=== PATIENT | female | born 1940 | race Caucasian/White ===

== ENCOUNTER 2018-05-06 21:50 | Inpatient (IN) ==
[2018-05-06] MEDS ORDERED: Acetaminophen 325 MG Tablet PO PRN (23:54)
[2018-05-06] MEDS ORDERED: Aluminum/Magnesium/Simethacone Susp 30 ML UDC PO PRN (23:54)
[2018-05-07 06:53] LABS: Anion Gap 10 meq/L (5-15); Blood Urea Nitrogen 12 mg/dL (7-18); Calcium 8.2 mg/dL (8.5-10.1); Carbon Dioxide 26.2 meq/L (21.0-32.0); Chloride 108 meq/L (98-107); Cholesterol 163 mg/dL (120-200); Glomerular Filtration Rate Greater Than 89 mL/min (>89); Glucose,Random 95 mg/dL (74-106); Potassium 3.5 meq/L (3.5-5.1); Sodium 144 meq/L (136-145)
[2018-05-07 06:57] LABS: Chol/HDL Ratio 2.41 Ratio; HDL Cholesterol 67.5 mg/dL (40.0-60.0); LDL Cholesterol,Calculated 76 mg/dL (0-99); Triglycerides 100 mg/dL (42-150)
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
[2018-05-07 12:02] LABS: Hemoglobin A1c 5.5 % (4.3-6.0)
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
[2018-05-08] MEDS: QUEtiapine 100 MG Tablet PO SCH ×2 (15:53→20:56)
[2018-05-09] MEDS ORDERED: Haloperidol Inj 5 MG/ML Ampul ONE (08:02)
[2018-05-09] MEDS: QUEtiapine 100 MG Tablet PO SCH ×2 (08:29→21:38)
[2018-05-09] MEDS ORDERED: Haloperidol Inj 5 MG/ML Ampul IM SCH (08:30)
--- NOTE | 2018-05-09 09:53 | P.CONPSY ---
Provisional Diagnosis Admission Date: May 06, 2018 22:50 [place] I.: Delusional disorder paranoid type History of Present Illness Service: Psychiatry Consult date: 05/09/18 Requesting Physician: Marlo Simpson Reason for Consult: Second opinion petition supporting [email or web address] Primary Care Provider: Jhonatan Amin History of Present Illness: Patient is 77-year-old white female admitted to Dr. Garcia service under the [employer] act his H&P reviewed and agreed with. Dr. Simpson is signed first opinion petition supporting [email or web address]. I agree. Patient meets criteria for involuntary psychiatric hospitalization under the [employer] act thus I will cosign second opinion petition supporting [email or web address]. Patient seen by me in the day room with nurse Chandni patient is alert delusional quite psychotic feeling that she is under federal investigation and the people are out to kill her Review of Systems All other systems reviewed negative except as stated in HPI PMFSH - History History Provided By: Patient - Medical / Surgical Hx Neg / Unobtainable Medical Problems Denied: Unable to Obtain - Tobacco History Second Hand Smoke Exposure: No Smoking Status: Never smoker - Alcohol History How Often Do You Have a Drink Containing Alcohol: Never - Substance Use History Substance History: No History of Abuse - Immunization History Tetanus Immunization: Unsure Hx Influenza Vaccine This Season: No Medications and Allergies Active Medications: Active Medications Acetaminophen (Tylenol) 650 mg PO Q4H PRN PRN Reason: Pain 1-5 or Temp >101F Al Hydrox/Mg Hydrox/Simethicone (Mag-Al Plus Susp Liq) 30 ml PO Q6H PRN PRN Reason: DYSPEPSIA Al Hydroxide/Mg Hydroxide (Milk Of Magnesia Liq) 30 ml PO DAILY PRN PRN Reason: Constipation Haloperidol Lactate (Haldol Inj) 2 mg IM STAT [facility] Last Admin: 05/09/18 08:28 Dose: 2 mg Nicotine (Habitrol 21 Mg Patch.24 Hr) 1 patch T-DERMAL DAILY [facility] Last Admin: 05/09/18 08:29 Dose: Not Given Patch Removal (Remove Old Patch) 1 each T-DERMAL HS [facility] Last Admin: 05/08/18 20:52 Dose: Not Given Quetiapine Fumarate (Seroquel) 100 mg PO BID [facility] Last Admin: 05/09/18 08:29 Dose: Not Given Allergies Allergy/AdvReac Type Severity Reaction Status Date / Time No Known Allergies Allergy Verified 05/06/18 23:49 Home Medications Medication Instructions Recorded Confirmed Type amlodipine [Norvasc] 5 mg PO DAILY 05/07/18 05/07/18 History atorvastatin 10 mg PO DAILY 05/07/18 05/07/18 History bisacodyl 5 mg PO DAILY 05/07/18 05/07/18 History lorazepam 1 mg PO QID PRN 05/07/18 05/07/18 History meloxicam 7.5 mg PO DAILY 05/07/18 05/07/18 History metoprolol tartrate 25 mg PO BID 05/07/18 05/07/18 History quetiapine 12.5 mg PO HS 05/07/18 05/07/18 History Exam Vital signs: Vital Signs 05/08/18 17:49 05/09/18 05:32 Temperature 99 F 98.2 F Pulse Rate 95 H 71 Respiratory Rate 18 18 Blood Pressure 177/81 H 143/65 H Pulse Oximetry 95 96 Intake & Output 05/08/18 05/09/18 05/09/18 18:59 06:59 18:59 Intake Total 960 / 960 0 / 0 Balance 960 / 960 0 / 0 Intake: Oral 960 / 960 0 / 0 Oral Supplement 0 / 0 Other: # Voids 1 1 # Bowel Movements 0 Narrative: Patient sitting quietly in the day room is in no acute distress, she is in no respiratory distress, no complaints of chest pain or abdominal pain. Patient moving all 4 extremities without difficulty Mental Status Examination Appearance: Appropriate Consciousness: Alert, Vigilant Orientation: Person, Place, Date/Time Motor Activity: Normal gait Speech: Unremarkable Language: Adequate Fund of Knowledge: Adequate Attention and Concentration: Adequate Memory: Impaired (Too paranoid and defensive to test patient's assessment of what is going on around her influence by her paranoia) Mood: Other (Euthymic to mildly irritable) Affect: Irritable, Labile, Anxious Thought Process & Associations: Disorganized Thought Content: Delusional Hallucination Type: None Delusion Type: Paranoid Suicidal Ideation: No Suicidal Plan: No Suicidal Intention: No Homicidal Ideation: Yes Homicidal Plan: No Homicidal Intention: No Insight: Poor Judgment: Poor Assessment and Plan - Assessment (1) Paranoid type delusional disorder Code(s): F22 - Delusional disorders Status: Acute - Plan Plan: At this time patient meets criteria for involuntary psychiatric hospitalization of the Fisher act. I agree with Dr. Simpson. Thus I will cosign second opinion petition supporting Fisher act Justification for Continued Inpatient Stay: At this time patient with decompensated placed in a lower level of care Discharge Planning: To be determined
--- NOTE | 2018-05-09 10:30 | P.PNPSY ---
Subjective Chief Complaint: Paranoid delusions of persecution. Aggressive behavior towards others destructive of property. Remarks: 05/09/2018 Subjective: Patient remains quite hostile. She is told nursing staff she and her do not get along and she refused to allow him to make any decisions for her. This appears to be an attempt on the patient's part to avoid taking any medication. She barricaded her self in the room today and required emergency treatment order Haldol 2 mg Ativan 1 mg. The patient was started just yesterday on 100 mg of Seroquel twice daily and this probably should be increased over the weekend. Except for her delusions the patient shows no cognitive impairment. She is incompetent at this point to make reality based decisions for herself. Mental Status Examination Appearance: Appropriate Consciousness: Alert, Vigilant Orientation: Person, Place, Date/Time Motor Activity: Normal gait Speech: Unremarkable Language: Adequate Fund of Knowledge: Adequate Attention and Concentration: Adequate Memory: Unremarkable Mood: Angry, Oppositional, Irritable Affect: Irritable, Labile, Anxious Thought Process & Associations: Other (Delusional, but organized and consistent with her paranoid ideation) Thought Content: Delusional Hallucination Type: None Delusion Type: Paranoid Suicidal Ideation: No Suicidal Plan: No Suicidal Intention: No Homicidal Ideation: Yes Homicidal Plan: No Homicidal Intention: No Insight: Poor Judgment: Poor Assessment and Plan - Assessment (1) Paranoid type delusional disorder Code(s): F22 - Delusional disorders Status: Acute - Plan Plan: At this time patient meets criteria for involuntary psychiatric hospitalization of the Fisher act. I agree with Dr. Simpson. Thus I will cosign second opinion petition supporting Fisher act. 05/09/2018 patient is currently on Seroquel 100 mg twice daily after finally call from her who tells me he is himself disabled and in the hospital following hip surgery. See the patient or participate in any family group planning until he is himself more stable. He plans to communicate with me regarding treatment by phone. Plan would be to gradually titrate patient's Seroquel to a point where she is at least manageable and cooperative. It may be necessary to change the patient' s neuroleptic to Zyprexa since the patient is likely to refuse oral medications. If the patient shows no improvement with Seroquel Zyprexa will be added and titrated to between 10 and 20 mg daily. This will require additional consents from the patient's . Justification for Continued Inpatient Stay: May 09, 2018 Patient is requiring EtOH and barricading herself in her room. She is at to greater risk for treatment at a lower level of care.
[2018-05-10] MEDS: QUEtiapine 100 MG Tablet PO SCH ×2 (08:05→20:41)
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
[2018-05-10] MEDS ORDERED: Lisinopril 20 MG Tablet PO ONE (16:45)
[2018-05-10 18:04] LABS: Baso # (Auto) 0.1 th/mm3 (0.0-0.2); Eos # (Auto) 0.2 th/mm3 (0.0-0.4); Eos % (Auto) 1.7 % (0.0-4.0); Hematocrit 36.2 % (35.0-46.0); Hemoglobin 12.9 gm/dL (11.6-15.3); Lymph # (Auto) 2.3 th/mm3 (1.0-4.8); Lymph % (Auto) 19.9 % (9.0-44.0); Mean Corpuscular HGB Conc 35.7 % (32.0-36.0); Mean Corpuscular Volume 86.7 fL (80.0-100.0); Mean Platelet Volume 6.5 fL (7.0-11.0); Mono # (Auto) 0.9 th/mm3 (0.0-0.9); Mono % (Auto) 7.7 % (0.0-8.0); Neut % (Auto) 69.7 % (16.0-70.0); Platelet Count 446 th/mm3 (150-450); Red Blood Count 4.17 mil/mm3 (4.00-5.30); Red Cell Distribution Width 14.2 % (11.6-17.2); White Blood Count 11.5 th/mm3 (4.0-11.0)
[2018-05-10 18:29] LABS: Alanine Aminotransferase 38 U/L (10-53); Albumin 3.8 g/dL (3.4-5.0); Anion Gap 6 meq/L (5-15); Aspartate Aminotransferase 31 U/L (15-37); Blood Urea Nitrogen 13 mg/dL (7-18); Calcium 8.9 mg/dL (8.5-10.1); Carbon Dioxide 31.3 meq/L (21.0-32.0); Chloride 104 meq/L (98-107); Glomerular Filtration Rate 53 mL/min (>89); Glucose,Random 107 mg/dL (74-106); Potassium 3.3 meq/L (3.5-5.1); Sodium 141 meq/L (136-145)
[2018-05-10 18:32] LABS: Alkaline Phosphatase 130 U/L (45-117); Total Protein 7.3 g/dL (6.4-8.2)
[2018-05-11 07:42] LABS: Hematocrit 34.5 % (35.0-46.0); Hemoglobin 11.9 gm/dL (11.6-15.3); Mean Corpuscular HGB Conc 34.4 % (32.0-36.0); Mean Corpuscular Hemoglobin 29.3 pg (27.0-34.0); Mean Corpuscular Volume 85.3 fL (80.0-100.0); Mean Platelet Volume 6.7 fL (7.0-11.0); Platelet Count 408 th/mm3 (150-450); Red Blood Count 4.05 mil/mm3 (4.00-5.30); Red Cell Distribution Width 14.2 % (11.6-17.2); White Blood Count 8.1 th/mm3 (4.0-11.0)
[2018-05-11] MEDS: QUEtiapine 100 MG Tablet PO SCH ×2 (08:04→20:36)
[2018-05-11 08:31] LABS: Calcium 8.7 mg/dL (8.5-10.1); Carbon Dioxide 30.4 meq/L (21.0-32.0); Potassium 3.8 meq/L (3.5-5.1)
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
--- NOTE | 2018-05-11 13:44 | P.PNPSY ---
Subjective Chief Complaint: Paranoid delusions of persecution. Aggressive behavior towards others destructive of property. Remarks: Patient was seen and case discussed with nursing. Patient remains paranoid and disorganized. she says she is sleeping well but per nursing she is not. Remains very psychotic believing that she is guilty of shooting somebody today. Was talking about the FBI earlier. She does deny suicidal homicidal ideation intent or plan. Review of Systems All other systems reviewed negative except as stated in HPI Mental Status Examination Appearance: Appropriate Consciousness: Alert, Vigilant Orientation: Person, Place, Date/Time Motor Activity: Normal gait Speech: Unremarkable Language: Adequate Fund of Knowledge: Adequate Attention and Concentration: Adequate Memory: Unremarkable Mood: Angry, Oppositional, Irritable Affect: Irritable, Labile, Anxious Thought Process & Associations: Other (Delusional, but organized and consistent with her paranoid ideation) Thought Content: Delusional Hallucination Type: None Delusion Type: Paranoid Suicidal Ideation: No Suicidal Plan: No Suicidal Intention: No Homicidal Ideation: Yes Homicidal Plan: No Homicidal Intention: No Insight: Poor Judgment: Poor Assessment and Plan - Assessment (1) Paranoid type delusional disorder Code(s): F22 - Delusional disorders Status: Acute - Plan Plan: Consider increase of Seroquel toMorrow Justification for Continued Inpatient Stay: Patient would decompensate in a less restrictive setting
[2018-05-11] MEDS: amLODIPine 5 MG Tablet PO SCH (13:51)
[2018-05-11 14:30] LABS: Bilirubin,Urine Negative (Negative); Clarity,Urine Clear (Clear); Glucose,Urine (UA) Negative (Negative); Leukocyte Esterase,Urine Negative (Negative); Mucus,Urine Few /lpf (Occasional); Nitrite,Urine Negative (Negative); Specific Gravity,Urine 1.001 (1.002-1.035)
[2018-05-11 14:33] LABS: Color,Urine Straw (Yellw/Straw)
[2018-05-11 14:34] LABS: Amphetamine Screen,Urine Neg (Neg); Barbiturate Screen,Urine Neg (Neg); Cannabinoid Screen,Urine Neg (Neg); Cocaine Screen,Urine Neg (Neg)
[2018-05-11 14:42] LABS: Opiate Screen,Urine Neg (Neg)
--- NOTE | 2018-05-11 15:12 | XR ---
EXAM DATE: 05/11/2018 3:03 PM EST AGE/SEX: 77 years / Female INDICATIONS: Shortness of breath. CLINICAL DATA: This is the patient's initial encounter. Patient reports that signs and symptoms have been present for 1 day and indicates a pain score of 0/10. MEDICAL/SURGICAL HISTORY: None. None. COMPARISON: No prior exams available for comparison. FINDINGS: Scattered perihilar atelectatic changes are noted bilaterally. The heart is normal. The pulmonary vas cular pattern is normal. Degenerative changes are noted throughout the thoracic spine. CONCLUSION: Scattered bilateral perihilar atelectatic changes. Electronically signed by: Tanvir Gu MD Board Certified Radiologist 05/11/2018 3:11 PM EST
[2018-05-11 17:37] LABS: Thyroid Stimulating Hormone 0.963 uIU/mL (0.358-3.740); Vitamin B12 478 pg/mL (193-986)
[2018-05-11 20:23] LABS: Hepatitits B Surface Antigen Nonreactive (Nonreactive)
[2018-05-11 20:31] LABS: Hepatitis A IgM Antibody Nonreactive (Nonreactive)
[2018-05-11] MEDS: Metoprolol Tartrate 25 MG Tablet PO SCH (20:36)
--- NOTE | 2018-05-12 07:42 | P.PNIM ---
Subjective Interval history: Follow-up visit HTN, HLD. Patient seen and examined today laying in bed. Reports she is doing okay. States that her lips are dry other than that she has no other complaints no acute issues overnight. States she has been taking her BP medications as prescribed. Patient seem to be irritable. Denies pain and discomfort. Denies SOB/ dyspnea. Denies chest pain, palpitations, headaches, dizziness. Denies fevers, chills, n/v/d. Denies dysuria. Physical Exam Vital signs: Vital Signs 05/11/18 08:00 05/11/18 11:38 05/11/18 17:17 Temperature 97.3 F L 98.1 F Pulse Rate 85 69 77 Respiratory Rate 19 17 18 Blood Pressure 130/73 142/64 H 173/95 H Pulse Oximetry 96 95 98 05/12/18 00:58 05/12/18 06:00 Temperature 99.0 F Pulse Rate 66 Respiratory Rate 16 Blood Pressure 124/58 L 135/62 Pulse Oximetry 96 Intake & Output 05/11/18 05/12/18 05/12/18 18:59 06:59 18:59 Intake Total 960 / 960 340 / 340 Balance 960 / 960 340 / 340 Weight 52.7 kg Intake: Oral 960 / 960 240 / 240 Oral Supplement 100 / 100 Other: # Voids 3 2 Narrative: GENERAL: elderly female patient, no acute distress. SKIN: Warm and dry. No obvious rash. HEAD: Atraumatic. Normocephalic. EYES: Pupils equal and round. No scleral icterus. No injection or drainage. ENT: No nasal bleeding or discharge. Mucous membranes pink and moist. NECK: Trachea midline. CARDIOVASCULAR: Regular rate and rhythm. RESPIRATORY: No accessory muscle use. Clear to auscultation. Breath sounds equal bilaterally. GASTROINTESTINAL: Abdomen soft, non-tender, nondistended. MUSCULOSKELETAL: Extremities without clubbing, cyanosis, or edema. No obvious deformities. NEUROLOGICAL: Awake and alert. No focal neuro deficit. Able to move all extremities spontaneously. Normal speech. PSYCHIATRIC: Anxious appearing. Irritable. Results - Labs CBC & Chem 7: 05/11/18 07:19 05/11/18 07:19 Laboratory Results - last 24 hr 05/11/18 05/11/18 05/11/18 07:19 07:19 14:03 WBC 8.1 RBC 4.05 Hgb 11.9 Hct 34.5 L MCV 85.3 MCH 29.3 MCHC 34.4 RDW 14.2 Plt Count 408 MPV 6.7 L Sodium 146 H Potassium 3.8 Chloride 108 H Carbon Dioxide 30.4 Anion Gap 8 BUN 12 Creatinine 0.65 Estimated GFR 89 Random Glucose 101 Calcium 8.7 Vitamin B12 Folate TSH Urine Color Urine Clarity Urine pH Ur Specific Newell Urine Protein Urine Glucose (UA) Urine Ketones Urine Occult Blood Urine Nitrate Urine Bilirubin Urine Urobilinogen Ur Leukocyte Esterase Urine WBC Urine Mucus Micro UA Comment Ur Microscopic Review Urine Culture Comments Urine Opiates Screen Neg Ur Barbiturates Screen Neg Ur Amphetamines Screen Neg U Benzodiazepines Scrn Neg Urine Cocaine Screen Neg U Cannabinoids Screen Neg Hepatitis A IgM Ab Hep Bs Antigen Hep B Core IgM Ab Hep C IgG Ab 05/11/18 05/11/18 05/11/18 14:03 16:34 16:34 WBC RBC Hgb Hct MCV MCH MCHC RDW Plt Count MPV Sodium Potassium Chloride Carbon Dioxide Anion Gap BUN Creatinine Estimated GFR Random Glucose Calcium Vitamin B12 478 Folate Greater than 20.0 H TSH 0.963 Urine Color Straw Urine Clarity Clear Urine pH 7.0 Ur Specific Newell 1.001 L Urine Protein Negative Urine Glucose (UA) Negative Urine Ketones Negative Urine Occult Blood Negative Urine Nitrate Negative Urine Bilirubin Negative Urine Urobilinogen Less than 2 Ur Leukocyte Esterase Negative Urine WBC Less than 1 Urine Mucus Few H Micro UA Comment Culture not ind Ur Microscopic Review Not Reportable Urine Culture Comments Culture not ind Urine Opiates Screen Ur Barbiturates Screen Ur Amphetamines Screen U Benzodiazepines Scrn Urine Cocaine Screen U Cannabinoids Screen Hepatitis A IgM Ab Nonreactive Hep Bs Antigen Nonreactive Hep B Core IgM Ab Nonreactive Hep C IgG Ab Nonreactive - Imaging Impressions Chest X-Ray 05/11/18 00:00 CONCLUSION: Scattered bilateral perihilar atelectatic changes. Assessment and Plan - Assessment (1) Paranoid type delusional disorder Code(s): F22 - Delusional disorders Status: Acute - Plan 77-year-old female with past medical history significant for hypertension and dyslipidemia admitted to inpatient psychiatric unit with acute psychosis. Acute psychosis, under [place] act Unclear if patient has any psychiatric history. -Management per psychiatric team -Head CT pending -UA negative, UDS negative, RPR nonreactive, Hep profile nonreactive, B12 478 , thiamine level pending, folate level >20, and TSH wnl Hypertension, chronic -Resume patient on home dose of Norvasc 5 mg daily and metoprolol 25 mg twice daily -Clonidine as needed -Monitor BP trend and adjust treatment as needed Dyslipidemia -atorvastatin 10 mg daily Hypernatremia, mild, suspect secondary to poor oral intake Na level 146 -Encourage p.o. fluid intake -Monitor sodium level intermittently MONIE, suspect secondary to poor oral intake, resolved -Encourage p.o. fluid intake -Avoid nephrotoxic agents -Improved LANDSCAPE ARCHITECT AND PLANNER 1.02 -->0.65 DVT prophylaxis, ambulatory FULL CODE Pending CT. If CT is negative we will sign off. Other etiology for psychosis does not seem to be of metabolic cause. Discussed Condition With: Patient, nursing Discharge Planning: DC disposition by primary team
[2018-05-12 08:51] LABS: RPR Screen For Reflex FTA Nonreactive (Nonreactive)
[2018-05-12] MEDS: QUEtiapine 100 MG Tablet PO SCH ×2 (09:15→20:15)
[2018-05-12] MEDS: Metoprolol Tartrate 25 MG Tablet PO SCH ×2 (09:15→20:15)
[2018-05-12] MEDS: amLODIPine 5 MG Tablet PO SCH (09:15)
[2018-05-12] MEDS ORDERED: Benzocaine/Menthol 15 MG/3.6 MG SF Lozenge BUCCAL PRN (11:00)
--- NOTE | 2018-05-12 11:13 | P.PNPSY ---
Subjective Chief Complaint: Paranoid delusions of persecution. Aggressive behavior towards others destructive of property. Remarks: May 12, 2018 Subjective: Patient remains floridly psychotic with paranoid delusions and oppositional behavior making treatment difficult. Patient has only her to give consent and he has been difficult to reach. Today obtain consent by telephone to start both Seroquel and Abilify. Patient states that she will not talk to me because I want to take her money. He has other reasons for not talking to the staff. She is repeatedly required emergency treatment orders. Mental Status Examination Appearance: Appropriate Consciousness: Alert, Vigilant Orientation: Person, Place, Date/Time Motor Activity: Normal gait Speech: Unremarkable Language: Adequate Fund of Knowledge: Adequate Attention and Concentration: Adequate Memory: Unremarkable Mood: Angry, Oppositional, Irritable Affect: Irritable, Labile, Anxious Thought Process & Associations: Other (Delusional, but organized and consistent with her paranoid ideation) Thought Content: Delusional (Patient trust no one, but has no one but her to give consent for medication) Hallucination Type: None Delusion Type: Paranoid Suicidal Ideation: No Suicidal Plan: No Suicidal Intention: No Homicidal Ideation: Yes Homicidal Plan: No Homicidal Intention: No Insight: Poor Judgment: Poor Assessment and Plan - Assessment (1) Paranoid type delusional disorder Code(s): F22 - Delusional disorders Status: Acute - Plan Plan: Consider increase of Seroquel toMorrow May 12, 2018 Patient has been contacted and finally consent form witnessed by the RN. He had previously contacted me by phone and we discussed the Seroquel and he gave consent with therapist no witness present. Apparently the Seroquel was never started confusion about the consent. Today the patient will be started on Seroquel 100 mg at bedtime and Abilify 5 mg once a day. If the patient shows no adverse effects to this regimen the Abilify will be increased tomorrow to 5 mg twice daily. It was somewhat easier today to reassure the patient that we had no intent to harm her. I think it will important to get the patient out of her room and interacting with others as much as tolerated. This should help with reality testing in terms of others meaning her harm. Justification for Continued Inpatient Stay: Patient remains floridly psychotic and is a danger to others because of her fears of evil intent by everyone in the environment.
[2018-05-12] MEDS: ARIPiprazole 5 MG Tablet PO SCH (12:35)
[2018-05-13] MEDS: ARIPiprazole 5 MG Tablet PO SCH (08:24)
[2018-05-13] MEDS: amLODIPine 5 MG Tablet PO SCH (08:24)
[2018-05-13] MEDS: Metoprolol Tartrate 25 MG Tablet PO SCH ×2 (08:24→20:27)
[2018-05-13] MEDS: QUEtiapine 100 MG Tablet PO SCH ×2 (08:24→20:27)
--- NOTE | 2018-05-13 11:15 | P.PNPSY ---
Subjective Chief Complaint: Paranoid delusions of persecution. Aggressive behavior towards others destructive of property. Remarks: May 13, 2018 Subjective: Patient continues irritable, oppositional and extremely paranoid. Patient is taking her medicine however by mouth after requiring IM ETO yesterday of Zyprexa 5 mg. There may be just a slight change in her aggressiveness, but there is little change in her willingness to follow direction. She is still wandering to other patients rooms. She has been particularly the meaning of her care and reviewed and irritable with her nurse. Mental Status Examination Appearance: Appropriate Consciousness: Alert, Vigilant Orientation: Person, Place, Date/Time Motor Activity: Normal gait Speech: Unremarkable Language: Adequate Fund of Knowledge: Adequate Attention and Concentration: Adequate Memory: Unremarkable Mood: Angry, Oppositional, Irritable Affect: Irritable, Labile, Anxious Thought Process & Associations: Other (Delusional, but organized and consistent with her paranoid ideation) Thought Content: Delusional (Patient trust no one, but has no one but her to give consent for medication) Hallucination Type: None Delusion Type: Paranoid Suicidal Ideation: No Suicidal Plan: No Suicidal Intention: No Homicidal Ideation: Yes Homicidal Plan: No Homicidal Intention: No Insight: Poor Judgment: Poor Assessment and Plan - Assessment (1) Paranoid type delusional disorder Code(s): F22 - Delusional disorders Status: Acute - Plan Plan: Consider increase of Seroquel toMorrow May 12, 2018 Patient has been contacted and finally consent form witnessed by the RN. He had previously contacted me by phone and we discussed the Seroquel and he gave consent with therapist no witness present. Apparently the Seroquel was never started confusion about the consent. Today the patient will be started on Seroquel 100 mg at bedtime and Abilify 5 mg once a day. If the patient shows no adverse effects to this regimen the Abilify will be increased tomorrow to 5 mg twice daily. It was somewhat easier today to reassure the patient that we had no intent to harm her. I think it will important to get the patient out of her room and interacting with others as much as tolerated. This should help with reality testing in terms of others meaning her harm. May 13, 2018 Continue current meds as prescribed. There is no improvement dosages of Abilify will be increased, tomorrow. Justification for Continued Inpatient Stay: Patient continues paranoid and psychotic wandering into other patient's room. It is difficult to determine how much of an impact neurocognitive changes contribute to the patient's condition. It is certain the patient would not be safe in a less restrictive environment.
--- NOTE | 2018-05-13 14:53 | P.PN ---
Subjective Interval history: Follow-up for HTN, HLD, psychosis. The patient seen ambulate in the hallways. She is very paranoid. She states nobody is feeding her. She refuses to go for head CT. She is very argumentative throughout conversation. Discussed with RN , no acute medical concerns. Physical Exam Vital signs: Vital Signs 05/12/18 17:37 05/13/18 01:00 Temperature 97.8 F Pulse Rate 77 69 Respiratory Rate 17 15 Blood Pressure 140/81 157/74 H Pulse Oximetry 97 97 Intake & Output 05/12/18 05/13/18 05/13/18 18:59 06:59 18:59 Intake Total 1440 / 1440 280 / 280 240 / 240 Balance 1440 / 1440 280 / 280 240 / 240 Intake: Oral 1440 / 1440 280 / 280 240 / 240 Other: # Voids 4 3 Narrative: GENERAL: Well-nourished, well-developed elderly female patient in [facility]. Ambulating the hallway. SKIN: Warm and dry. No rash. HEENT: Normocephalic. Atraumatic. Pupils equal and round. Mucous membranes pink and moist. CARDIOVASCULAR: Regular rate and rhythm. No murmur appreciated. RESPIRATORY: No accessory muscle use. Clear to auscultation. Breath sounds equal bilaterally. GASTROINTESTINAL: Abdomen soft, non-tender, nondistended. Normoactive bowel sounds x4. MUSCULOSKELETAL: No obvious deformities. Extremities without clubbing, cyanosis , or edema. NEUROLOGICAL: Awake and alert. Moving all extremities spontaneously. Normal speech. PSYCHIATRIC: Irritable, paranoid, anxious mood. Insight and judgment limited. Results - Labs CBC & Chem 7: 05/11/18 07:19 05/11/18 07:19 Assessment and Plan - Assessment (1) Paranoid type delusional disorder Code(s): F22 - Delusional disorders Status: Acute - Plan 77-year-old female with past medical history significant for hypertension and dyslipidemia admitted to inpatient psychiatric unit with acute psychosis. Acute psychosis, under [place] act Unclear if patient has any psychiatric history. -Management per psychiatric team -Head CT pending, patient refuses -UA negative, UDS negative, RPR nonreactive, Hep profile nonreactive, B12 478 , thiamine level pending, folate level >20, and TSH wnl Hypertension, chronic -Resume patient on home dose of Norvasc 5 mg daily and metoprolol 25 mg twice daily -Clonidine as needed -Monitor BP trend and adjust treatment as needed Dyslipidemia -atorvastatin 10 mg daily Hypernatremia, mild, suspect secondary to poor oral intake Na level 146 -Encourage p.o. fluid intake -Monitor sodium level intermittently MONIE, suspect secondary to poor oral intake, resolved -Encourage p.o. fluid intake -Avoid nephrotoxic agents -Improved OPTICAL DESIGNER 1.02 -->0.65 DVT prophylaxis, ambulatory FULL CODE Pending CT, patient continues to refuse daily. If CT is negative we will sign off.
[2018-05-14] MEDS: QUEtiapine 100 MG Tablet PO SCH ×2 (08:26→21:00)
[2018-05-14] MEDS: Metoprolol Tartrate 25 MG Tablet PO SCH ×2 (08:26→21:00)
[2018-05-14] MEDS: amLODIPine 5 MG Tablet PO SCH (08:26)
[2018-05-14] MEDS: ARIPiprazole 5 MG Tablet PO SCH (08:26)
--- NOTE | 2018-05-14 10:40 | P.PNPSY ---
Subjective Chief Complaint: Paranoid delusions of persecution. Aggressive behavior towards others destructive of property. Remarks: May 14, 2018 Subjective: Patient remains quite paranoid there is according to nursing no changes in her paranoia, but the patient is taking her medications by mouth. Her interpretation of the reality of what is happening around her has not significantly changed and represents the driving force of her disturbance of thought processing. There is improvement in the area of her anxiety although she continues to be demeaning of others when interacting with so she does not know. Suspicious of change. She shows a bit of diminished hostility toward me and some of the other staff. She continues to cover her memory deficits regarding recent events with refusal to talk about any of the behavior that led to her hospitalization. She remains quite critical of her . Today she said she did not know where he was although we have attempted to discuss this with her since admission. My hope is that her mentioning them today and saying that she does not know where he is may be the beginning of her wanting to see him. Medication changes: Patient shows no side effects from 5 mg a day of Abilify. The dosage will be increased to 15 mg starting today. Natalia act hearing tomorrow. I attempted to prepare patient for this experience , but she was unwilling to discuss. I feel she fears new experience. Mental Status Examination Appearance: Appropriate Consciousness: Alert, Vigilant Orientation: Person, Place, Date/Time Motor Activity: Normal gait Speech: Unremarkable Language: Adequate Fund of Knowledge: Adequate Attention and Concentration: Adequate Memory: Unremarkable Mood: Angry, Oppositional, Irritable Affect: Irritable (Slightly reduced), Labile, Anxious Thought Process & Associations: Other (Delusional, but organized and consistent with her paranoid ideation) Thought Content: Delusional (Patient trust no one, but has no one but her to give consent for medication) Hallucination Type: None Delusion Type: Paranoid Suicidal Ideation: No Suicidal Plan: No Suicidal Intention: No Homicidal Ideation: Yes (Patient was making threats on admission and apparently prior to admission) Homicidal Plan: No Homicidal Intention: No (Slow improvement) Insight: Poor Judgment: Poor Assessment and Plan - Assessment (1) Paranoid type delusional disorder Code(s): F22 - Delusional disorders Status: Acute - Plan Plan: May 14, 2018 Patient's Abilify will be increased to 15 mg daily plan is for continuation of the Fisher act and consideration of proxy Justification for Continued Inpatient Stay: May 14, 2018 Patient continues psychotic with paranoid delusions and risk of decompensation in a less intensive treatment facility. Request Healthcare Surrogate/Guardian Advocate?: Yes
--- NOTE | 2018-05-14 13:33 | P.PN ---
Subjective Interval history: Follow up for HTN, psychosis no prior hx: pt. seen and examined with RN at [facility]. Pt. remains psychotic and paranoid. She doesn't know where she is, initially not sure of her age. Difficult to focus. Has no complaints when asked. She believes that a alliance party is being planned, then she believes that her gave her extra pills this morning. Continues to refuse CT head. Physical Exam Vital signs: Vital Signs 05/13/18 18:12 05/14/18 05:19 Temperature 98 F 98.5 F Pulse Rate 72 93 H Respiratory Rate 20 16 Blood Pressure 182/79 H 152/66 H Pulse Oximetry 96 96 Intake & Output 05/13/18 05/14/18 05/14/18 18:59 06:59 18:59 Intake Total 720 / 720 720 / 720 960 / 960 Balance 720 / 720 720 / 720 960 / 960 Intake: Oral 720 / 720 720 / 720 960 / 960 Other: # Voids 2 Narrative: GENERAL: Well-nourished, well-developed elderly female patient in [facility]. Ambulating the hallway. SKIN: Warm and dry. No rash. HEENT: Normocephalic. Atraumatic. Pupils equal and round. Mucous membranes pink and moist. CARDIOVASCULAR: Regular rate and rhythm. No murmur appreciated. RESPIRATORY: No accessory muscle use. Clear to auscultation. Breath sounds equal bilaterally. GASTROINTESTINAL: Abdomen soft, non-tender, nondistended. Normoactive bowel sounds x4. MUSCULOSKELETAL: No obvious deformities. Extremities without clubbing, cyanosis , or edema. NEUROLOGICAL: Awake and alert. Moving all extremities spontaneously. Normal speech. PSYCHIATRIC: Irritable, paranoid, anxious mood. Insight and judgment limited. Results - Labs CBC & Chem 7: 05/11/18 07:19 05/11/18 07:19 Assessment and Plan - Assessment (1) Paranoid type delusional disorder Code(s): F22 - Delusional disorders Status: Acute - Plan 77-year-old female with past medical history significant for hypertension and dyslipidemia admitted to inpatient psychiatric unit with acute psychosis. Acute psychosis, under Fisher act Unclear if patient has any psychiatric history. -Management per psychiatric team -Head CT pending, patient continues to refuse -UA negative, UDS negative, RPR nonreactive, Hep profile nonreactive, B12 478 , thiamine level pending, folate level >20, and TSH wnl Hypertension, chronic -Resumed patient on home dose of Norvasc 5 mg daily and metoprolol 25 mg twice daily -Clonidine as needed -Monitor BP trend and adjust treatment as needed Dyslipidemia -atorvastatin 10 mg daily Hypernatremia, mild, suspect secondary to poor oral intake Na level 146 -Encourage p.o. fluid intake -Monitor sodium level intermittently MONIE, suspect secondary to poor oral intake, resolved -Encourage p.o. fluid intake -Avoid nephrotoxic agents -Improved HEAT TREATER 1.02 -->0.65 DVT prophylaxis, ambulatory pt. continues to refuse CT head, remains psychotic. Will sign off for now, if any changes please reconsult Code Status: Full code Discussed Condition With: RN, patient Discharge Planning: Per psych team
[2018-05-15] MEDS: Metoprolol Tartrate 25 MG Tablet PO SCH ×2 (08:25→20:13)
[2018-05-15] MEDS: QUEtiapine 100 MG Tablet PO SCH ×2 (08:25→20:13)
[2018-05-15] MEDS: amLODIPine 5 MG Tablet PO SCH (08:25)
--- NOTE | 2018-05-15 14:57 | P.PNPSY ---
Subjective Chief Complaint: Paranoid delusions of persecution. Aggressive behavior towards others destructive of property. Remarks: May 15, 2018 Subjective the patient was seen in court today where she agreed to the need to continue and patient services. Patient last evening was barricading herself in her room and is showing further evidences of paranoid delusions unmitigated by her antipsychotic medication. Later today the patient. Before the discharge was rather sedated following her increased dosage of Abilify to 15 mg a day and was unable to respond with her usual level of alertness and awareness. She was not able to identify place or time. Chest prior to her morning meds the patient had dismissed the banking attorney attempting to represent her. Mental Status Examination Appearance: Appropriate Consciousness: Alert, Vigilant Orientation: Person, Place, Date/Time Motor Activity: Normal gait Speech: Unremarkable Language: Adequate Fund of Knowledge: Adequate Attention and Concentration: Adequate Memory: Unremarkable Mood: Angry, Oppositional, Irritable Affect: Irritable (Slightly reduced), Labile, Anxious Thought Process & Associations: Other (Delusional, but organized and consistent with her paranoid ideation) Thought Content: Delusional (Patient trust no one, but has no one but her to give consent for medication) Hallucination Type: None Delusion Type: Paranoid Suicidal Ideation: No Suicidal Plan: No Suicidal Intention: No Homicidal Ideation: Yes (Patient was making threats on admission and apparently prior to admission) Homicidal Plan: No Homicidal Intention: No (Slow improvement) Insight: Poor Judgment: Poor Assessment and Plan - Assessment (1) Paranoid type delusional disorder Code(s): F22 - Delusional disorders Status: Acute - Plan Plan: May 14, 2018 Patient's Abilify will be increased to 15 mg daily plan is for continuation of the Fisher act and consideration of proxy May 15, 2018 Patient will be allowed additional time to adjust to the increased dosage of her Abilify before any other changes are made. Justification for Continued Inpatient Stay: May 15, 2018 Patient was seen in the court and extension of her Fisher act was granted. Request Healthcare Surrogate/Guardian Advocate?: Yes
[2018-05-16] MEDS: Metoprolol Tartrate 25 MG Tablet PO SCH ×2 (08:06→20:43)
[2018-05-16] MEDS: QUEtiapine 100 MG Tablet PO SCH ×2 (08:06→20:44)
[2018-05-16] MEDS: amLODIPine 5 MG Tablet PO SCH (08:06)
--- NOTE | 2018-05-16 09:47 | P.DSPSY ---
Psychiatry Discharge Summary Inpatient Psychiatric care?: Yes Advance Directives: No Mental Health Advance Directive: No Health Care Proxy: No - Admission Admission Date: May 06, 2018 22:50 Diagnosis specificity: Delusional disorderparanoid Brief History: May 07, 2018 HPI Patient is a 19-year-old female who is admitted under a Fisher act. Patient is unreliable informant and denies any contradicts both her own statements and statements made by others. Patient believes that others are drugging her. Denies hearing voices or seeing those who are driving her, knows the are that there. Statement of [facility] license #[id number] a psychiatric nurse: "Psychotic disorder, recent onset, due to unknown stressor. Delusional, paranoid, hypervigilant aggressive, destruction of property and threatening others, poor reality testing. " Supporting evidence noted on the Fisher act: "Throwing objects, grabbing other residents, she is hypervigilant and feels her life is in danger. Poor reality testing, thinks resident's are being served human meat, barricade of door to room and tried to break out window. States other residents are being raped, high elopement risk." Patient made statements in my interview with her supporting the above information. She denies seen those who are persecuting her and was extremely wary, defensive, suspicious and aggressive in her responses. She initially would not reveal where she was staying. He said she lives alone, later she contradicted this when confronted with information from the Fisher act. Patient presents with a very irritable attitude towards all questions and may be covering her lack of recall of recent events as well as being suspicious of my motives. She made several statements suggesting being fearful of being raped or abused. Tobacco Use In Past 30 Days: No How Often Do You Have a Drink Containing Alcohol: Never Hospital Course: May 16, 2018 Patient's course in the hospital was marked by severe agitation, paranoid delusions requiring emergency treatment orders. On at least 2 occasions the patient barricaded herself in her room. The last episode was 2 days prior to discharge. On that date the medication was increased from 5 mg of Abilify to 15. The patient was oversedated but in her court hearing ask for continued stay. She was clearly showing no signs of paranoia but having difficulty with cognition. Today the patient is oriented in all spheres and wondering about her who previously she had refused to see our to allow to make any decisions for her. The patient now denies all paranoid ideas she had 2 days before. Today the patient is pleasant, having had a good night's rest. She is asking to to go home. It is anticipated the patient will return to the [facility] who referred her here. - Discharge Discharge Date: 05/16/18 Discharge Disposition: Long-Term Facility - Discharge Time > 30 minutes Mental Status Examination Appearance: Appropriate Consciousness: Alert, Vigilant Orientation: Person, Date/Time Motor Activity: Normal gait Speech: Unremarkable Language: Adequate Fund of Knowledge: Adequate Attention and Concentration: Adequate Memory: Impaired (Patient thinks she is still in a "mcc".) Mood: Appropriate Affect: Appropriate Thought Process & Associations: Intact, Other (Delusional, but organized and consistent with her paranoid ideation) Thought Content: Appropriate Hallucination Type: None Delusion Type: None Suicidal Ideation: No Suicidal Plan: No Suicidal Intention: No Homicidal Ideation: No (Patient was making threats on admission and apparently prior to admission) Homicidal Plan: No Homicidal Intention: No (Slow improvement) Insight: Poor Judgment: Adequate Discharge/Advance Care Plan Your Health Problems Are: Anxiety - Results Vital Signs: Last Vital Signs Temp 97.2 F L 05/16/18 05:28 Pulse 66 05/16/18 05:28 Resp 16 05/16/18 05:28 BP 160/66 H 05/16/18 05:28 Pulse Ox 94 L 05/16/18 05:28 Lab Results: Abnormal Lab Results 05/11/18 16:34 Thiamine 128 Laboratory Results Hemoglobin A1c 5.5 % (4.3-6.0) 05/07/18 05:45 Triglycerides 100 mg/dL (42-150) 05/07/18 05:45 Cholesterol 163 mg/dL (120-200) 05/07/18 05:45 LDL Cholesterol, Calc 76 mg/dL (0-99) 05/07/18 05:45 HDL Cholesterol 67.5 mg/dL (40.0-60.0) H 05/07/18 05:45 TSH 0.963 uIU/mL (0.358-3.740) 05/11/18 16:34 Urine Culture Comments Culture not ind 05/11/18 14:03 Summary of Procedures: None Imaging: ITS Impressions Chest X-Ray 05/11/18 00:00 CONCLUSION: Scattered bilateral perihilar atelectatic changes. Pending Results: None - Medications Number of antipsychotic medications at discharge: 1 - Discharge Care Plan Goals to Promote Your Health: * To prevent worsening of your condition and complications * To maintain your health at the optimal level Directions to Meet Your Goals: Take your medications as prescribed Follow your dietary instruction Follow activity as directed Keep your appointments as scheduled Take your immunizations and boosters as scheduled If your symptoms worsen call your PCP, if no PCP go to Urgent Care Center or Emergency Room For 10/12 questions related to your inpatient stay or results of tests pending at discharge, please contact Dr. Marlo Simpson MD at Smoking is Dangerous to Your Health. Avoid second hand smoking
[2018-05-17] MEDS: QUEtiapine 100 MG Tablet PO SCH ×2 (08:24→20:46)
[2018-05-17] MEDS: amLODIPine 5 MG Tablet PO SCH (08:24)
[2018-05-17] MEDS: Metoprolol Tartrate 25 MG Tablet PO SCH ×2 (08:24→20:46)
--- NOTE | 2018-05-17 18:49 | P.PNPSY ---
Subjective Chief Complaint: Paranoid delusions of persecution. Aggressive behavior towards others destructive of property. Remarks: Reviewed electronic medical records and discussed case with staff. Follow-up was conducted in the patient's room with JEANNETTE Phelps present. His nurse reports that s she relays that the patient talk to her nephew earlier today but when told her was on the phone C that she did not know his name. She also told the nurse that the voice in her head was laughing and she was afraid it would hurt her. She did take her meds after much encouragement. The patient is found lying on the bed and states that she feels "not too great". She goes on a tangent about having killed some people stating that she was told she had kill these people. She is very disorganized. When asked if she knows where she is she states "[place]". He has been acting bizarre and suspicious as well as guarded. She apparently feels guilty for killing "the love of my life". However, she is unable to elaborate on who this may be. Mental Status Examination Appearance: Appropriate Consciousness: Alert, Vigilant Orientation: Person, Date/Time Motor Activity: Normal gait Speech: Unremarkable Language: Adequate Fund of Knowledge: Adequate Attention and Concentration: Adequate Memory: Impaired (Patient thinks she is still in a "snf".) Mood: Appropriate Affect: Appropriate Thought Process & Associations: Intact, Other (Delusional, but organized and consistent with her paranoid ideation) Thought Content: Appropriate Hallucination Type: None Delusion Type: None Suicidal Ideation: No Suicidal Plan: No Suicidal Intention: No Homicidal Ideation: No (Patient was making threats on admission and apparently prior to admission) Homicidal Plan: No Homicidal Intention: No (Slow improvement) Insight: Poor Judgment: Adequate Assessment and Plan - Assessment (1) Paranoid type delusional disorder Code(s): F22 - Delusional disorders Status: Acute - Plan Plan: Patient will be reevaluated by the attending psychiatrist. Continue with current treatment plan. Justification for Continued Inpatient Stay: Moving this patient to a less restrictive environment would likely result in decompensation. Request Healthcare Surrogate/Guardian Advocate?: Yes
[2018-05-18] MEDS: QUEtiapine 100 MG Tablet PO SCH ×2 (08:27→21:36)
[2018-05-18] MEDS: Metoprolol Tartrate 25 MG Tablet PO SCH ×2 (08:27→21:36)
[2018-05-18] MEDS: amLODIPine 5 MG Tablet PO SCH (08:27)
--- NOTE | 2018-05-18 20:04 | P.PNPSY ---
Subjective Chief Complaint: Paranoid delusions of persecution. Aggressive behavior towards others destructive of property. Remarks: Reviewed electronic medical records and discussed case with staff. Follow-up was conducted in the patient's room with JEANNETTE Phelps present. The patient opened her door and response to the knock. She seemed excitable but euthymic. When asked how she was today she states, "I do not know my guys just took off but they will be back". She claims that her appetite's been good and states that she is happy because, "we got a raise". Overall she remains diffusely confused but her mood is somewhat improved from yesterday. Mental Status Examination Appearance: Appropriate Consciousness: Alert, Vigilant Orientation: Person, Date/Time Motor Activity: Normal gait Speech: Unremarkable Language: Adequate Fund of Knowledge: Adequate Attention and Concentration: Adequate Memory: Impaired (Patient thinks she is still in a "snf".) Mood: Appropriate Affect: Appropriate Thought Process & Associations: Intact, Other (Delusional, but organized and consistent with her paranoid ideation) Thought Content: Appropriate Hallucination Type: None Delusion Type: None Suicidal Ideation: No Suicidal Plan: No Suicidal Intention: No Homicidal Ideation: No (Patient was making threats on admission and apparently prior to admission) Homicidal Plan: No Homicidal Intention: No (Slow improvement) Insight: Poor Judgment: Adequate Assessment and Plan - Assessment (1) Paranoid type delusional disorder Code(s): F22 - Delusional disorders Status: Acute - Plan Plan: Patient will be reevaluated by the attending psychiatrist. Continue with current treatment plan. Justification for Continued Inpatient Stay: Moving this patient to a less restrictive environment would likely result in decompensation. Request Healthcare Surrogate/Guardian Advocate?: Yes
--- NOTE | 2018-05-19 08:34 | P.PNPSY ---
Subjective Chief Complaint: Paranoid delusions of persecution. Aggressive behavior towards others destructive of property. Remarks: Subjective: Electronic records reviewed met with patient with clinical staff educator responsible for her care. Nurse reports that patient has been noncompliant with her medication and has expressed multiple delusional ideas, all of which she denies now but presents a new set of delusions which today include her running off with a younger woman. Last evening the patient believed someone was going to have a baby in her room. Patient's delusions may suggest a transfer of dream state ideas to her waking state. Patient remains pleasant and has not barricaded herself in her room showed suspicion of staff be on her medication refusal. Mental Status Examination Appearance: Appropriate Consciousness: Alert, Vigilant Orientation: Person, Date/Time Motor Activity: Normal gait Speech: Unremarkable Language: Adequate Fund of Knowledge: Adequate Attention and Concentration: Adequate Memory: Impaired (Patient thinks she is still in a "snf".) Mood: Appropriate Affect: Appropriate Thought Process & Associations: Intact, Other (Delusional, but organized and consistent with her paranoid ideation) Thought Content: Appropriate Hallucination Type: None Delusion Type: Paranoid Suicidal Ideation: No Suicidal Plan: No Suicidal Intention: No Homicidal Ideation: No (Patient was making threats on admission and apparently prior to admission) Homicidal Plan: No Homicidal Intention: No (Slow improvement) Insight: Poor Judgment: Poor (noncompliant with medication) Assessment and Plan - Assessment (1) Paranoid type delusional disorder Code(s): F22 - Delusional disorders Status: Acute - Plan Plan: May 19, 2018 Patient had been discharged on the , but for lack of placement patient remained on the unit and apparently over the weekend refused medication and decompensated. Patient explained her refusal noting that she feels better when she does not take the Abilify. The patient accepts no argument for why it is important to take the medicine. In the past the patient's agitation as required emergency treatment orders of Haldol. The Haldol will be discontinued in favor of Zyprexa Zydis 5 mg p.o. or IM if the patient refuses p.o. Nursing will check for possible cheeking of her p.o. medications. The patient has expressed no concern about her Seroquel. Justification for Continued Inpatient Stay: May 19, 2018 As noted, the patient been discharged on the but was showing some paranoia which has worsened over the weekend likely because the patient has been refusing her medication. Note medication changes to include IM Zyprexa if Zyprexa Zydis is refused. Request Healthcare Surrogate/Guardian Advocate?: Yes
[2018-05-19] MEDS: amLODIPine 5 MG Tablet PO SCH (08:55)
[2018-05-19] MEDS: Metoprolol Tartrate 25 MG Tablet PO SCH ×2 (09:00→21:52)
[2018-05-20] MEDS: amLODIPine 5 MG Tablet PO SCH (09:00)
[2018-05-20] MEDS: Metoprolol Tartrate 25 MG Tablet PO SCH ×2 (09:00→20:59)
--- NOTE | 2018-05-20 10:48 | P.PNPSY ---
Subjective Chief Complaint: Paranoid delusions of persecution. Aggressive behavior towards others destructive of property. Remarks: May 20, 2018 Subjective: Patient friendlier this morning but she has agreed to taking her medicine today. Effects of the medication change. Discussed patient with staff nurse in attendance and with team. There apparently is a process through we must go in order to transfer the patient to an [facility]. If patient will take medication it appears her paranoia is manageable as evidenced by her mental status today. Have however been at this point before and the patient has regressed. Mental Status Examination Appearance: Appropriate Consciousness: Alert, Vigilant Orientation: Person, Date/Time Motor Activity: Normal gait Speech: Unremarkable Language: Adequate Fund of Knowledge: Adequate Attention and Concentration: Adequate Memory: Impaired (Patient thinks she is still in a "usp".) Mood: Appropriate Affect: Appropriate Thought Process & Associations: Intact, Other (Delusional, but organized and consistent with her paranoid ideation) Thought Content: Appropriate Hallucination Type: None Delusion Type: Paranoid (Nursing expressed in the past 24 hours suggesting paranoia.) Suicidal Ideation: No Suicidal Plan: No Suicidal Intention: No Homicidal Ideation: No (Patient was making threats on admission and apparently prior to admission) Homicidal Plan: No Homicidal Intention: No (Slow improvement) Insight: Poor Judgment: Poor (noncompliant with medication) Assessment and Plan - Assessment (1) Paranoid type delusional disorder Code(s): F22 - Delusional disorders Status: Acute - Plan Plan: May 19, 2018 Patient had been discharged on the , but for lack of placement patient remained on the unit and apparently over the weekend refused medication and decompensated. Patient explained her refusal noting that she feels better when she does not take the Abilify. The patient accepts no argument for why it is important to take the medicine. In the past the patient's agitation as required emergency treatment orders of Haldol. The Haldol will be discontinued in favor of Zyprexa Zydis 5 mg p.o. or IM if the patient refuses p.o. Nursing will check for possible cheeking of her p.o. medications. The patient has expressed no concern about her Seroquel. Justification for Continued Inpatient Stay: May 20, 2018 Patient has problem with compliance and with fluctuations of her symptoms from hostile paranoia to less hostile paranoia and down right friendliness the time, but she may need the threat of taking the medicine IM to agree to by mouth. Decompensation in a lesser level of care for this reason is of moderate risk. Request Healthcare Surrogate/Guardian Advocate?: Yes
[2018-05-20] MEDS ORDERED: Haloperidol Inj 5 MG/ML Ampul ONE (23:39)
[2018-05-20] MEDS ORDERED: Haloperidol Inj 5 MG/ML Ampul IM ONE (23:45)
[2018-05-21] MEDS: amLODIPine 5 MG Tablet PO SCH (08:47)
[2018-05-21] MEDS: Metoprolol Tartrate 25 MG Tablet PO SCH ×2 (08:48→20:23)
--- NOTE | 2018-05-21 11:24 | P.PNPSY ---
Subjective Chief Complaint: Paranoid delusions of persecution. Aggressive behavior towards others destructive of property. Remarks: May 21, 2018 Subjective: Patient was seen and interviewed with clinical social work therapist discussed with staff nurse. Patient appears to be much improved during the daytime but at nighttime she is ing and last evening required an emergency treatment order line Benadryl. Patient at this time appears to be baseline except for the refusal of medications. And is speaking to the nursing staff they were unaware that the as needed injection of her Zyprexa was to be given if she refuses the p.o. In the past and he threat of injection even when she is uncooperative and other ways has resulted in the patient's agreement to take her medication. This can be a problem in a nursing facility if they are unable to I am medications. I discussed with the this morning is concerned that when she talked to him she was slurring her words. My examination the patient shows absolutely no evidence at this time of her slurring or having any EPS symptoms. The patient had endorsed some dryness of her mouth when certain medications are given to her around noon. This is not her psychotropic medications. Nursing has agreed to give the patient the PRN of Zyprexa if she refuses her p.o. Zydis dose of Zyprexa Review of Systems ROS: Patient has only complained May of some dryness of the mouth she associates with either her noon meal food. Mental Status Examination Appearance: Appropriate Consciousness: Alert, Vigilant Orientation: Person, Date/Time Motor Activity: Normal gait Speech: Unremarkable Language: Adequate Fund of Knowledge: Adequate Attention and Concentration: Adequate Memory: Impaired (Patient thinks she is still in a "shelter".) Mood: Appropriate Affect: Appropriate Thought Process & Associations: Intact, Other (Delusional, but organized and consistent with her paranoid ideation) Thought Content: Appropriate Hallucination Type: None Delusion Type: Paranoid (Patient's paranoid area seems to occur only after and is accompanied at times with the degree of agitation that responds to Benadryl and Haldol.) Suicidal Ideation: No Suicidal Plan: No Suicidal Intention: No Homicidal Ideation: No (Patient was making threats on admission and apparently prior to admission) Homicidal Plan: No Homicidal Intention: No (Slow improvement) Insight: Poor Judgment: Poor (noncompliant with medication) Assessment and Plan - Assessment (1) Paranoid type delusional disorder Code(s): F22 - Delusional disorders Status: Acute - Plan Plan: May 19, 2018 Patient had been discharged on the , but for lack of placement patient remained on the unit and apparently over the weekend refused medication and decompensated. Patient explained her refusal noting that she feels better when she does not take the Abilify. The patient accepts no argument for why it is important to take the medicine. In the past the patient's agitation as required emergency treatment orders of Haldol. The Haldol will be discontinued in favor of Zyprexa Zydis 5 mg p.o. or IM if the patient refuses p.o. Nursing will check for possible cheeking of her p.o. medications. The patient has expressed no concern about her Seroquel. May 21, 2018: Patient's has been refusing her p.o. Zyprexa. Communicated with the RN in charge of the patient today that this needs to be solved by offering the patient either the Zyprexa Zydis or the injection of the Zyprexa. Justification for Continued Inpatient Stay: May 21, 2018: The patient is ready for discharge and appears at her baseline without risk of decompensation unless it is impossible to convince her to take her medicine are in lieu of that give her IM injections of her medication. The patient has in the past decompensated when refusing medication for even one day. Placement is the only remaining issue standing the way of the patient's discharge. In the past the patient has presented problems because of her paranoid ideation and statements that staff were raping her. There has been none of that for over a week and the patient has not expressed any fear of harm to herself or fear of her own violence towards others. Request Healthcare Surrogate/Guardian Advocate?: Yes
[2018-05-22] MEDS: Metoprolol Tartrate 25 MG Tablet PO SCH ×2 (08:18→20:23)
[2018-05-22] MEDS: amLODIPine 5 MG Tablet PO SCH (08:18)
--- NOTE | 2018-05-22 11:39 | P.PNPSY ---
Subjective Chief Complaint: Paranoid delusions of persecution. Aggressive behavior towards others destructive of property. Remarks: May 22, 2018 Subjective: Patient complains of dry mouth at times. She is also concerned that someone is going to murder her to at the time of my visit. Earlier, she had been quite lucid and not expressing any paranoid ideation. Patient was seen [id number] with the nurse present during our interview. Patient was reassured by myself and the staff nurse that no one was intending to harm her. Patient has not demonstrated any of the violence or agitation noted previously. Seroquel will be tapered down to 100 mg twice daily. Experimentally patient's light will be left on until 9:00 PM in order to assess the value of light and the patient's confusion and periods of paranoia and agitation. Overall, the patient appears to be less paranoid and when she is accepts reassurance more easily. Patient remains a placement problem. I have discussed with social worker aide the ideal situation would be to have her and her placed in the same [facility]. The is recovering from hip surgery and there is an effort to place him in an [facility]TERM by the [facility] and [place]. Review of Systems May 22, 2018 Patient has no somatic complaints beyond dryness of the mouth. The patient does continue to express fears and anxiety along with her paranoid ideation. Mental Status Examination Appearance: Appropriate Consciousness: Alert, Vigilant Orientation: Person, Date/Time Motor Activity: Normal gait Speech: Unremarkable Language: Adequate Fund of Knowledge: Adequate Attention and Concentration: Adequate Memory: Impaired (Patient thinks she is still in a "[facility]".) Mood: Appropriate Affect: Appropriate Thought Process & Associations: Intact, Other (Delusional, but organized and consistent with her paranoid ideation) Thought Content: Appropriate Hallucination Type: None Delusion Type: Paranoid (Patient's paranoid area seems to occur only after and is accompanied at times with the degree of agitation that responds to Benadryl and Haldol.) Suicidal Ideation: No Suicidal Plan: No Suicidal Intention: No Homicidal Ideation: No (Patient was making threats on admission and apparently prior to admission) Homicidal Plan: No Homicidal Intention: No (Slow improvement) Insight: Poor Judgment: Poor (noncompliant with medication) Assessment and Plan - Assessment (1) Paranoid type delusional disorder Code(s): F22 - Delusional disorders Status: Acute - Plan Plan: May 19, 2018 Patient had been discharged on the , but for lack of placement patient remained on the unit and apparently over the weekend refused medication and decompensated. Patient explained her refusal noting that she feels better when she does not take the Abilify. The patient accepts no argument for why it is important to take the medicine. In the past the patient's agitation as required emergency treatment orders of Haldol. The Haldol will be discontinued in favor of Zyprexa Zydis 5 mg p.o. or IM if the patient refuses p.o. Nursing will check for possible cheeking of her p.o. medications. The patient has expressed no concern about her Seroquel. May 21, 2018: Patient's has been refusing her p.o. Zyprexa. Communicated with the RN in charge of the patient today that this needs to be solved by offering the patient either the Zyprexa Zydis or the injection of the Zyprexa. May 22, 2018 Reduce Seroquel 200 mg twice daily. Justification for Continued Inpatient Stay: May 22, 2018 Patient remains a placement problem, but all efforts are being made for placement. There continue to be some need for tweaking her medication and treatments. Request Healthcare Surrogate/Guardian Advocate?: Yes
[2018-05-22] MEDS: QUEtiapine 100 MG Tablet PO SCH (20:23)
--- NOTE | 2018-05-23 08:22 | P.PNPSY ---
Subjective Chief Complaint: Paranoid delusions of persecution. Aggressive behavior towards others destructive of property. Remarks: May 23, 2018 Subjective: Patient up and out of bed as usual early in the morning. She was walking for exercise around the unit. Pleasant to talk to and evidences none of the paranoia that she has experienced previously. Patient had a better night with the light on until 9 p.m. I suspect wavelength of the light in the room has some degenerative effects on her owning. Objective: Patient shows no effects or complaints secondary to the reduction of her Seroquel from 200-100mg twice daily. Review of Systems May 23, 2018 patient continues to deny any review of systems complaints. Mental Status Examination Appearance: Appropriate Consciousness: Alert, Vigilant Orientation: Person, Date/Time Motor Activity: Normal gait Speech: Unremarkable Language: Adequate Fund of Knowledge: Adequate Attention and Concentration: Adequate Memory: Impaired (Patient thinks she is still in a "residential".) Mood: Appropriate Affect: Appropriate Thought Process & Associations: Intact, Other (Delusional, but organized and consistent with her paranoid ideation) Thought Content: Appropriate Hallucination Type: None Delusion Type: Paranoid (Not noted today.) Suicidal Ideation: No Suicidal Plan: No Suicidal Intention: No Homicidal Ideation: No (Patient was making threats on admission and apparently prior to admission) Homicidal Plan: No Homicidal Intention: No (Slow improvement) Insight: Poor Judgment: Poor (noncompliant with medication) Assessment and Plan - Assessment (1) Paranoid type delusional disorder Code(s): F22 - Delusional disorders Status: Acute - Plan Plan: May 23, 2018 continue current plan patient is awaiting placement Justification for Continued Inpatient Stay: May 23, 2018 Patient is awaiting placement, and possibly needs further titration of her medication. Request Healthcare Surrogate/Guardian Advocate?: Yes
[2018-05-23] MEDS: Metoprolol Tartrate 25 MG Tablet PO SCH ×2 (08:43→20:48)
[2018-05-23] MEDS: amLODIPine 5 MG Tablet PO SCH (08:43)
[2018-05-23] MEDS: QUEtiapine 100 MG Tablet PO SCH ×2 (08:43→20:48)
[2018-05-24] MEDS: Metoprolol Tartrate 25 MG Tablet PO SCH ×2 (08:10→20:18)
[2018-05-24] MEDS: QUEtiapine 100 MG Tablet PO SCH ×2 (08:10→20:18)
[2018-05-24] MEDS: amLODIPine 5 MG Tablet PO SCH (08:10)
--- NOTE | 2018-05-24 15:32 | P.PNPSY ---
Subjective Chief Complaint: Paranoid delusions of persecution. Aggressive behavior towards others destructive of property. Remarks: Patient was seen and case discussed with nursing. Patient remains flat and minimally engaged during the interview. She says that she feels followed at times. She is compliant with her medications. Describes her mood as apathetic. Remains internally stimulated Review of Systems All other systems reviewed negative except as stated in HPI Mental Status Examination Appearance: Appropriate Consciousness: Alert, Vigilant Orientation: Person, Date/Time Motor Activity: Normal gait Speech: Unremarkable Language: Adequate Fund of Knowledge: Adequate Attention and Concentration: Adequate Memory: Impaired (Patient thinks she is still in a "retirement".) Mood: Appropriate Affect: Appropriate Thought Process & Associations: Intact, Other (Delusional, but organized and consistent with her paranoid ideation) Thought Content: Appropriate Hallucination Type: None Delusion Type: Paranoid (Denies today but vigilant) Suicidal Ideation: No Suicidal Plan: No Suicidal Intention: No Homicidal Ideation: No (Patient was making threats on admission and apparently prior to admission) Homicidal Plan: No Homicidal Intention: No (Slow improvement) Insight: Poor Judgment: Poor (noncompliant with medication) Assessment and Plan - Assessment (1) Paranoid type delusional disorder Code(s): F22 - Delusional disorders Status: Acute - Plan Plan: Continue current treatment plan Justification for Continued Inpatient Stay: Patient would decompensate in a less restrictive setting Request Healthcare Surrogate/Guardian Advocate?: Yes
[2018-05-25] MEDS: Metoprolol Tartrate 25 MG Tablet PO SCH ×2 (08:24→20:27)
[2018-05-25] MEDS: amLODIPine 5 MG Tablet PO SCH (08:24)
[2018-05-25] MEDS: QUEtiapine 100 MG Tablet PO SCH ×2 (08:25→20:27)
--- NOTE | 2018-05-25 13:57 | P.PNPSY ---
Subjective Chief Complaint: Paranoid delusions of persecution. Aggressive behavior towards others destructive of property. Remarks: Reviewed electronic medical records and discussed case with staff. Follow-up was conducted in the day room with JEANNETTE Boyer present. Her nurse reports that she was transferred from [facility]. She states that she is presented as bizarre and disorganized but does seem to be showing some improvement. Patient states that she feels "okay". She reports, "I do not know what I am doing". Her affect is sad and flat. She claims that she does not sleep very well and her appetite has not been very good. When asked about her mood she states, "not good I guess ". However, when asked how she feels physically she states "I am okay". Overall she presents is extremely dysthymic. Mental Status Examination Appearance: Appropriate Consciousness: Alert, Vigilant Orientation: Person, Date/Time Motor Activity: Normal gait Speech: Unremarkable Language: Adequate Fund of Knowledge: Adequate Attention and Concentration: Adequate Memory: Impaired (Patient thinks she is still in a "care home".) Mood: Appropriate Affect: Appropriate Thought Process & Associations: Intact, Other (Delusional, but organized and consistent with her paranoid ideation) Thought Content: Appropriate Hallucination Type: None Delusion Type: Paranoid (Denies today but vigilant) Suicidal Ideation: No Suicidal Plan: No Suicidal Intention: No Homicidal Ideation: No (Patient was making threats on admission and apparently prior to admission) Homicidal Plan: No Homicidal Intention: No (Slow improvement) Insight: Poor Judgment: Poor (noncompliant with medication) Assessment and Plan - Assessment (1) Paranoid type delusional disorder Code(s): F22 - Delusional disorders Status: Acute - Plan Plan: Patient will be reevaluated by the attending psychiatrist. Continue with current treatment plan. Justification for Continued Inpatient Stay: Moving this patient to a less restrictive environment would likely result in decompensation. Request Healthcare Surrogate/Guardian Advocate?: Yes
[2018-05-26] MEDS: QUEtiapine 100 MG Tablet PO SCH ×2 (09:32→20:15)
[2018-05-26] MEDS: amLODIPine 5 MG Tablet PO SCH (09:32)
[2018-05-26] MEDS: Metoprolol Tartrate 25 MG Tablet PO SCH ×2 (09:32→20:14)
--- NOTE | 2018-05-26 12:01 | P.PNPSY ---
Subjective Chief Complaint: Paranoid delusions of persecution. Aggressive behavior towards others destructive of property. Remarks: May 26, 2018 Subjective: Patient feels much better today but she has had some ups and downs with complaints that time to that she did not want to speak to her followed by a feeling of almost aspiration speak to him. I talked to him today and he reported this ambulance that the patient is displaying. Patient had asked me this morning if she could talk to her she was very worried about him and wanted to know how he was doing. Patient is ready for discharge to assisted living facility once this is available to her. Patient seems to be in pretty good physical condition and is able to take care of herself. The problem of ambivalence and episodes of paranoia probably are baseline at this time the patient is stable enough to be discharged pending finding of an appropriate placement. Review of Systems May 26, 2018 patient denies any new complaints in the review of systems. Mental Status Examination Appearance: Appropriate (There is subtle improvement but ambivalence about trusting others remains.) Consciousness: Alert, Vigilant Orientation: Person, Date/Time Motor Activity: Normal gait Speech: Unremarkable Language: Adequate Fund of Knowledge: Adequate Attention and Concentration: Adequate Memory: Impaired (Patient thinks she is still in a "half-way".) Mood: Appropriate Affect: Appropriate Thought Process & Associations: Intact, Other (Delusional, but organized and consistent with her paranoid ideation) Thought Content: Appropriate Hallucination Type: None Delusion Type: Paranoid (Denies today but vigilant) Suicidal Ideation: No Suicidal Plan: No Suicidal Intention: No Homicidal Ideation: No (Patient was making threats on admission and apparently prior to admission) Homicidal Plan: No Homicidal Intention: No (Slow improvement) Insight: Poor Judgment: Poor (noncompliant with medication) Assessment and Plan - Assessment (1) Paranoid type delusional disorder Code(s): F22 - Delusional disorders Status: Acute - Plan Plan: Patient will be reevaluated by the attending psychiatrist. Continue with current treatment plan. Attending psychiatrist May 26, 2018 while the patient is showing improvement placement may be a problem because of the episodes of retreating into periods of ambivalence with some degree of paranoia evident. Patient had seemed desperate to talk to her this morning but has refused to talk to him in the past hour. Justification for Continued Inpatient Stay: May 26, 2018 Patient's 1 minute wanting to speak to her and the next minute is refusing to speak to him just a few minutes before noon today suggests that there continues to be risk for decompensation. This overlay certainly represents neurocognitive dementia changes that are not easily addressed, but hopefully can be either resolved or placement in skilled home with the patient' s not likely to be ignored by skilled staff. Unfortunately, the patient's insurance does not cover alf care. Request Healthcare Surrogate/Guardian Advocate?: Yes
[2018-05-27] MEDS: Metoprolol Tartrate 25 MG Tablet PO SCH ×2 (08:56→20:24)
[2018-05-27] MEDS: QUEtiapine 100 MG Tablet PO SCH ×2 (08:56→20:24)
[2018-05-27] MEDS: amLODIPine 5 MG Tablet PO SCH (08:56)
--- NOTE | 2018-05-27 10:02 | P.DSPSY ---
Psychiatry Discharge Summary Inpatient Psychiatric care?: Yes Advance Directives: No Mental Health Advance Directive: No Health Care Proxy: No - Admission Admission Date: May 06, 2018 22:50 Brief History: May 07, 2018 HPI Patient is a 19-year-old female who is admitted under a Fisher act. Patient is unreliable informant and denies any contradicts both her own statements and statements made by others. Patient believes that others are drugging her. Denies hearing voices or seeing those who are driving her, knows the are that there. Statement of [facility] license #[id number] a psychiatric nurse: "Psychotic disorder, recent onset, due to unknown stressor. Delusional, paranoid, hypervigilant aggressive, destruction of property and threatening others, poor reality testing. " Supporting evidence noted on the Fisher act: "Throwing objects, grabbing other residents, she is hypervigilant and feels her life is in danger. Poor reality testing, thinks resident's are being served human meat, barricade of door to room and tried to break out window. States other residents are being raped, high elopement risk." Patient made statements in my interview with her supporting the above information. She denies seen those who are persecuting her and was extremely wary, defensive, suspicious and aggressive in her responses. She initially would not reveal where she was staying. He said she lives alone, later she contradicted this when confronted with information from the Fisher act. Patient presents with a very irritable attitude towards all questions and may be covering her lack of recall of recent events as well as being suspicious of my motives. She made several statements suggesting being fearful of being raped or abused. Tobacco Use In Past 30 Days: No How Often Do You Have a Drink Containing Alcohol: Never Hospital Course: May 27, 2018 Brief summary: Patient was seen on a daily basis, medications were titrated. Patient vacillated between reason and paranoia. At 15 mg of Zyprexa the patient was oversedated. At 5 mg of Zyprexa daily the patient began to decompensate. Her reality testing seemed best when she was on 15 mg but because of her slight build and obvious over sedation mental ground at 10 mg a days was decided upon. At this level the patient has not shown the agitation noted on the lower dose. Has however demonstrated a very inconsistent appreciation of the radiation relationship with her . It would appear underlying her exaggerated fear of her is the fact that he had her hospitalized. Yesterday, the patient was almost tearful and baking to speak to her . Within an hour's time the patient said she will would not speak to him. Repeated efforts were made throughout the day without any change. I do feel the patient is probably at baseline today and can be transferred to a [facility]. She requires very little in the way of senior care except for management of her medications. 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 Discharge Disposition: [facility] Facility - Discharge Instructions Discharge Diet: Regular Diet Activities You Can Perform: Regular- No Restrictions - Discharge Time > 30 minutes Mental Status Examination Appearance: Appropriate (There is subtle improvement but ambivalence about trusting others remains.) Consciousness: Alert, Vigilant Orientation: Person, Date/Time Motor Activity: Normal gait Speech: Unremarkable Language: Adequate Fund of Knowledge: Adequate Attention and Concentration: Adequate Memory: Impaired (Patient thinks she is still in a "senior care".) Mood: Appropriate Affect: Appropriate Thought Process & Associations: Intact, Other (Delusional, but organized and consistent with her paranoid ideation) Thought Content: Appropriate Hallucination Type: None Delusion Type: Paranoid (Denies today but vigilant) Suicidal Ideation: No Suicidal Plan: No Suicidal Intention: No Homicidal Ideation: No (Patient was making threats on admission and apparently prior to admission) Homicidal Plan: No Homicidal Intention: No (Slow improvement) Insight: Poor Judgment: Poor (noncompliant with medication) Discharge/Advance Care Plan - Results Vital Signs: Last Vital Signs Temp 98.4 F 05/27/18 06:00 Pulse 65 05/27/18 07:59 Resp 16 05/27/18 06:00 BP 131/62 05/27/18 06:00 Pulse Ox 98 05/27/18 06:00 Lab Results: Laboratory Results Hemoglobin A1c 5.5 % (4.3-6.0) 05/07/18 05:45 Triglycerides 100 mg/dL (42-150) 05/07/18 05:45 Cholesterol 163 mg/dL (120-200) 05/07/18 05:45 LDL Cholesterol, Calc 76 mg/dL (0-99) 05/07/18 05:45 HDL Cholesterol 67.5 mg/dL (40.0-60.0) H 05/07/18 05:45 TSH 0.963 uIU/mL (0.358-3.740) 05/11/18 16:34 Urine Culture Comments Culture not ind 05/11/18 14:03 Summary of Procedures: None Imaging: ITS Impressions Chest X-Ray 05/11/18 00:00 CONCLUSION: Scattered bilateral perihilar atelectatic changes. Pending Results: None - Medications Number of antipsychotic medications at discharge: 2 - Discharge Care Plan Goals to Promote Your Health: * To prevent worsening of your condition and complications * To maintain your health at the optimal level Directions to Meet Your Goals: Take your medications as prescribed Follow your dietary instruction Follow activity as directed Keep your appointments as scheduled Take your immunizations and boosters as scheduled If your symptoms worsen call your PCP, if no PCP go to Urgent Care Center or Emergency Room For 10/12 questions related to your inpatient stay or results of tests pending at discharge, please contact Dr. Marlo Simpson MD at Smoking is Dangerous to Your Health. Avoid second hand smoking
[2018-05-28] MEDS: Metoprolol Tartrate 25 MG Tablet PO SCH ×2 (09:03→21:48)
[2018-05-28] MEDS: amLODIPine 5 MG Tablet PO SCH (09:03)
[2018-05-28] MEDS: QUEtiapine 100 MG Tablet PO SCH ×2 (09:04→21:49)
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
[2018-05-28 18:15] VITALS: RESP 18
[2018-05-29 05:58] VITALS: TEMP 97.3; O2SAT 97
[2018-05-29 08:37] VITALS: BP 134/65; PULSE 69
[2018-05-29] MEDS: amLODIPine 5 MG Tablet PO SCH (08:38)
[2018-05-29] MEDS: Metoprolol Tartrate 25 MG Tablet PO SCH (08:38)
[2018-05-29] MEDS: QUEtiapine 100 MG Tablet PO SCH (08:38)
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
== END 2018-05-29 13:55 | disposition home or self-care (01) | DRG 885 ==
LOC: H250 22:50 → H4EA 05-09 11:31 → H250 05-23 20:05 → UNDODISIN 05-27 12:45
PROVIDERS: ADMIT Psychiatry & Neurology Child & Adolescent Psychiatry; ATTEND Psychiatry & Neurology Child & Adolescent Psychiatry
CPT/HCPCS: 71010; 71045; 80048; 80053; 80061; 80074; 80307; 81001; 82607; 82746; 83036; 84425; 84443; 85025; 85027; 86592; J1200; J1630; J2060